=== PATIENT | male | born 1955 | race Caucasian/White ===

== ENCOUNTER → 2021-11-04 | Outpatient (CLI) | payer OTHER ==
[~2021-11-04] MED LIST: IOHEXOL 350 MG/ML 100 ML VIAL. IV ONE; IOHEXOL 350 MG/ML 100 ML VIAL. ONE
--- NOTE | 2021-11-04 15:40 | RAD ---
EXAM: CT angiography of the chest with intravenous contrast. HISTORY: Elevated d-dimer. Shortness of breath. TECHNIQUE: Computed tomographic images of the chest were obtained following the administration of int ravenous contrast according to angiography protocol. Multiplanar reformatting was performed and three dimensional maximum intensity projection images were obtained. *One or more of the following individualized dose reduction techniques were utilized for this examina tion: 1. Automated exposure control. 2. Adjustment of the mA and/or kV according to patient size. 3. Use of iterative reconstruction technique. COMPARISON: None. FINDINGS: There are bilateral upper and lower lobe pulmonary emboli involving segmental and subsegmen christianne ulnar artery branches. No saddle embolus is seen. There is no right heart strain. There is no pul monary artery hypertension. There are are nonspecific mediastinal and hilar lymph nodes, possibly phy siologic or reactive in etiology. There is coronary artery calcification. There is a small right pleu ral effusion. There is right lower lobe infiltrate superimposed on suspected atelectasis. The possibility of underl skyla right basilar pulmonary infarction is not excluded. There is biapical pleural parenchymal scarri ng. There is no pneumothorax. There is a small hiatal hernia. There is hepatic steatosis. There is no acute finding involving the upper abdomen. There is no acute osseous finding. IMPRESSION: 1. Bilateral upper and lower lobe segmental and subsegmental pulmonary emboli. No saddle embolus or h eart strain is seen. 2. Right lower lobe infiltrate superimposed on atelectasis and a small pleural effusion. The possibil ity of underlying pulmonary infarction is not excluded. Follow-up to confirm resolution. 3. Suspected physiologic or reactive mediastinal or hilar lymph nodes. 4. Small hiatal hernia. 5. Suspected hepatic steatosis. Findings were discussed with Jacki, the nurse in the referring physician office, at 1520 hours on 11/04. FOR INTERNAL CODING PURPOSES RESULT CODE: (C) Electronically signed by: Cinthya Steele MD (11/04/2021 3:37 PM) [id number]
== END ==
LOC: CT 11:58
PROVIDERS: ATTEND Family Medicine
DX: I26.99 Other pulmonary embolism without acute cor pulmonale (principal); K44.9 Diaphragmatic hernia without obstruction or gangrene; R91.8 Other nonspecific abnormal finding of lung field; J90 Pleural effusion, not elsewhere classified; J98.11 Atelectasis; I25.10 Atherosclerotic heart disease of native coronary artery without angina pectoris
CPT/HCPCS: 71275; Q9967

== ENCOUNTER → 2021-11-05 | Outpatient (CLI) | payer OTHER ==
--- NOTE | 2021-11-05 08:11 | RAD ---
Study: CT CHEST WITH CONTRAST - PULMONARY ANGIOGRAM History: Elevated d-dimer. Shortness of breath. Comparison: 11/04/2021 Technique: Helical CT of the chest performed after the administration of 100 cc Omnipaque 350 intrav enous contrast and timed for angiographic evaluation of the pulmonary arteries per PE protocol. Coron al and sagittal 3D MIP reformations were obtained. One or more of the following individualized dose reduction techniques were utilized for this examinat ion: 1. Automated exposure control 2. Adjustment of the mA and/or kV according to patient size 3. Use of iterative reconstruction technique. Findings: Pulmonary Arteries: Redemonstration of segmental/subsegmental pulmonary emboli. No progression of emb olic burden from the recent comparison. No manifestations of right heart strain developed. Heart/Systemic Vasculature: No aortic aneurysm or dissection. Patent visualized great vessels. Mediastinum: Small hiatal hernia. Unchanged mildly prominent mediastinal and hilar lymph nodes. Lungs: Redemonstrated small right pleural effusion similar or minimally increased in volume. Pleural- based opacity at the inferomedial right lower lobe is faintly larger and more confluent. Unchanged si ze and density of an additional pleural-based opacity laterally at the right lower lobe extending jazmín ng the costophrenic angle. Mild right more so than left basilar volume loss. Neck/Axilla/Body Wall: Unchanged. Upper Abdomen: Vicarious excretion of contrast into the gallbladder. Suspected hepatic steatosis. Bones: No interval change. Miscellaneous: None. IMPRESSION: 1. Again identified are segmental/subsegmental pulmonary emboli on both the right and left. The over all extent of emboli is unchanged though at a few locations the emboli are slightly smaller in size s uch as within the left lower lobe. No CT manifestations of right heart strain. 2. Pleural-based opacities at the inferior right lower lobe remain suspicious for two sites of infar ction. The more laterally located opacity is unchanged while the inferior/medial opacity is faintly l arger and more confluent. Associated small right pleural effusion and atelectasis. Electronically signed by: DEANGELO CLAUDIO MD (11/05/2021 8:08 AM) [facility]
== END ==
LOC: CT 07:23
PROVIDERS: ATTEND Family Medicine
DX: I26.99 Other pulmonary embolism without acute cor pulmonale (principal); R91.8 Other nonspecific abnormal finding of lung field; K44.9 Diaphragmatic hernia without obstruction or gangrene; R06.02 Shortness of breath; R79.9 Abnormal finding of blood chemistry, unspecified
CPT/HCPCS: 71275; Q9967

== ENCOUNTER → 2022-01-17 | Outpatient (CLI) | payer OTHER ==
[~2022-01-17] MED LIST changes: +IOHEXOL 300 MG/ML 50 ML VIAL. ONE
--- NOTE | 2022-01-17 10:59 | RAD ---
CTA CHEST_ABDOMEN_AND PELVIS INDICATION: AORTIC ANEURYSM, H/O BLOOD CLOTS Comparison: CTA chest 01/07/2022. TECHNIQUE: Following the uneventful administration of a bolus of intravenous contrast, 100 cc Omnipaq ue 350, axial CT sections were obtained through the chest, abdomen, and pelvis. MIP images and multip lanar reconstructions were also obtained. PQRS compliance statement: One or more of the following individualized dose reduction techniques were utilized for this examinat ion: 1. Automated exposure control 2. Adjustment of the mA and/or kV according to patient size 3. Use of iterative reconstruction technique FINDINGS: No aortic dissection or aneurysm. Previously seen segmental/subsegmental pulmonary thromboemboli are no longer visualized. Right lower lobe opacities have resolved. No pulmonary mass or consolidation. No abnormality of the central airways. The pleural spaces are normal. The visualized thyroid is normal in size and attenuation. No axillary or supraclavicular lymphadenopa thy. No mediastinal, hilar or retrocrural lymphadenopathy. The heart and pericardium are within myke l limits. Hepatic steatosis. The gallbladder, pancreas, spleen, and bilateral adrenal glands are normal. Symmetric renal enhancement. There is no focal renal mass. There is no hydronephrosis. The visualized loops of small bowel are normal. The visualized loops of large bowel are normal. There is no evidence of bowel obstruction. Appendix is normal. There is no free fluid. There is no mesenteric or retroperitoneal adenopathy. The abdominal aorta is normal in caliber. Urinary bladder is normal. No pelvic free fluid. There is no pelvic or inguinal adenopathy. Degenerative changes of the spine. IMPRESSION: 1. Previously seen segmental/subsegmental pulmonary thromboemboli are no longer visualized. Right low er lobe opacities and small pleural effusion have resolved. 2. No aortic dissection or aneurysm. Electronically signed by: Kiet Aguilera MD (01/17/2022 10:57 AM) [id number]
== END ==
LOC: CT 07:36
PROVIDERS: ATTEND Family Medicine
DX: I71.2 Thoracic aortic aneurysm, without rupture (principal); I71.4 Abdominal aortic aneurysm, without rupture; K76.0 Fatty (change of) liver, not elsewhere classified; M47.817 Spondylosis without myelopathy or radiculopathy, lumbosacral region
CPT/HCPCS: 71275; 74174; 74175; Q9967